=== PATIENT | male | born 1960 | race Caucasian/White ===

== ENCOUNTER 2019-12-15 18:47 | Emergency (ER) | payer BC ==
[2019-12-15] MEDS ORDERED: Bupivacaine 0.5% 10 ML VIAL ONE (19:05)
[2019-12-15] MEDS ORDERED: Cephalexin 250 MG CAP ONE (19:09)
[2019-12-15] MEDS ORDERED: Bacitracin 1 PK ONE (20:15)
[2019-12-15] MEDS ORDERED: HYDROcodone/Acetaminophen 10/325 mg Tablet ONE (20:15)
--- NOTE | 2019-12-16 10:06 | RAD ---
RIGHT HAND 3 VIEWS: DATE: 12/15/2019. FINDINGS: Tuft fractures of the distal phalanges of the 4th and 5th digits are present. Displacement is minima l. The remainder of the hand and wrist appear intact. An old injury to the ulnar styloid is indicat ed. IMPRESSION: Acute tuft fractures of digits 4 and 5. POS: HOME
== END 2019-12-15 20:30 | disposition home or self-care (01) ==
LOC: BURERS 18:47
DX: S62.636B Displaced fracture of distal phalanx of right little finger, initial encounter for open fracture (principal); S62.634B Displaced fracture of distal phalanx of right ring finger, initial encounter for open fracture; E11.9 Type 2 diabetes mellitus without complications; I10 Essential (primary) hypertension; Z79.84 Long term (current) use of oral hypoglycemic drugs; Z79.899 Other long term (current) drug therapy; W22.8XXA Striking against or struck by other objects, initial encounter
CPT/HCPCS: 11730; 12002; J3490